=== PATIENT | male | born 1940 | race Caucasian/White ===

== ENCOUNTER 2018-11-10 12:12 | Inpatient (IN) ==
[2018-11-15] MEDS ORDERED: Mag Hydrox/Al Hydrox/Simeth 30 ML UDC PO PRN (15:47)
[2018-11-15] MEDS ORDERED: Ondansetron ODT 4 MG TAB.RAPDIS SL PRN (15:50)
[2018-11-15] MEDS: Amoxicillin/Clavulanate 500 MG TABLET PO SCH (16:29)
[2018-11-15] MEDS: *HR* Heparin 5,000 UNIT/ML VIAL SQ SCH (16:30)
[2018-11-15] MEDS: Melatonin 3 MG TABLET PO PRN (20:34)
[2018-11-16] MEDS: *HR* Heparin 5,000 UNIT/ML VIAL SQ SCH ×2 (05:24→16:28)
[2018-11-16 05:57] LABS: Basophils % 0.8 %; Eosinophils # 0.3 K/mcL (0.0-0.6); Hematocrit 30.5 % (37.5-50.1); Hemoglobin 10.1 g/dL (12.9-16.9); Immature Granulocytes % 0.4 % (0-4); Lymphocytes % 18.4 %; Mean Corpuscular HGB Conc 33.1 g/dL (31.6-35.5); Mean Corpuscular Volume 90.5 fL (83.0-100.0); Mean Platelet Volume 9.2 fL (9.4-12.4); Monocytes # 0.7 K/mcL (0.0-1.3); Monocytes % 12.8 %; Neutrophils # 3.3 K/mcL (1.6-8.9); Platelet Count 275 K/mcL (140-400); Red Blood Count 3.37 M/mcL (4.19-5.50); Red Cell Distribution Width 14.6 % (11.5-14.5); Segmented Neutrophils % 61.6 %; White Blood Count 5.3 K/mcL (4.3-11.1)
[2018-11-16 06:14] LABS: Alanine Aminotransferase 93 Units/L (7-52); Albumin 2.9 g/dL (3.5-5.7); Albumin/Globulin Ratio 1.2 (1.1-2.2); Alkaline Phosphatase 68 Units/L (34-104); Aspartate Amino Transferase 74 Units/L (13-39); BUN/Creatinine Ratio 18 (6-26); Bilirubin,Total 0.5 mg/dL (0.3-1.0); Blood Urea Nitrogen 23 mg/dL (8-23); Carbon Dioxide 27 mEq/L (23-29); Chloride 103 mEq/L (98-107); Globulin 2.5 g/dL (2.4-3.5); Glucose 89 mg/dL (70-105); Magnesium 2.1 mg/dL (1.6-2.6); Osmolality,Calculated 289 (280-300); Potassium 3.5 mEq/L (3.5-5.1); Sodium 138 mEq/L (136-145); Total Protein 5.4 g/dL (6.4-8.9); eGFR For African Americans > 60 (> 60); eGFR For Non-African Americans 54 (> 60)
--- NOTE | 2018-11-16 08:53 | Internal Med History&Physical ---
Date of Encounter: 11/16/18 Time of Encounter: 08:43 Assessment and Plan (1) Community acquired pneumonia Current visit: Yes Status: Acute Improving. Continue Augmentin. Continue O2 per nasal cannula. Monitor labs. White blood cell count 5.3 this morning. Qualifiers: Laterality: left Lung location: lower lobe of lung Qualified Code(s): J18.1 - Lobar pneumonia, unspecified organism (2) General weakness Current visit: Yes Status: Acute PT and OT to eval and treat. Will follow progress. (3) Essential hypertension Current visit: No Status: Chronic Internal Medicine - H&P: HPI Admitted From: Hospital to Hospital Transfer Plans for Post Hospital Care: Home History of present illness: Mr. Ren is a 78 year old male admitted to inpatient rehab from [facility] after an admission for general weakness after having several days of diarrhea and loose stools several times a day. At time of admission he also had fever, chills, right knee pain, productive cough. Chest x-ray was obtained during admission and showed left-sided pneumonia. Past medical history includes arthritis, hyperlipidemia, gout, hypertension, bradycardia. Patient is a former smoker. Patient was eating eggs this morning and started coughing and having difficulty with them. Will have speech therapy eval swallowing. Patient denies fever, chills, nausea, vomiting or diarrhea. Denies chest pain or shortness of breath. States bowels are moving as normal. States he has nonproductive cough. Continues to be on oxygen per nasal cannula. Maintaining O2 sats greater than 92%. Was not on oxygen at home. Son currently have bedside. He states that patient was very independent prior to admission. States he has been coughing often on over the past several months with food. Was able to stand at the kitchen and take his own medications of encounter. Now he is to weak to lift his arms and hold a cup. pt lives at home alone. plan to have PT and OT to eval and treat. Past Med Surg Social Fam HX - Past Medical History Medical history: arthritis, hyperlipidemia, hypertension, other Additional medical history: gout, tremors Psychiatric history: no psych history - Past Surgical History Surgical History: no surgical history - Social History Smoking Status: Former smoker Smokeless Tobacco Status: Yes Alcohol use: occasionally Drug use: none Internal Medicine - H&P: Meds Aspirin [Lo-Dose Aspirin EC] 81 mg PO DAILY 11/15/17 [History] Lisinopril [Zestril] 5 mg PO DAILY 11/15/17 [History] Multivit-Min/FA/Lycopen/Lutein [A Thru Z Select Men 50+ Tablet] 1 tab PO DAILY 11/15/17 [History] Primidone [Mysoline] 25 mg PO DAILY 11/15/17 [History] Simvastatin [Zocor] 20 mg PO HS 11/15/17 [History] Furosemide [Lasix] 20 mg PO DAILY 11/08/18 [History] Loratadine [Allergy Relief] 10 mg PO DAILY 11/08/18 [History] Amoxicillin/Clavulanate [Augmentin] 500 mg PO BIDWM 5 Days #10 tablet 11/15/18 [Rx] Tamsulosin [Flomax] 0.4 mg PO DAILY #30 capsule 11/15/18 [Rx] Allergy/AdvReac Type Severity Reaction Status Date / Time No Known Allergies Allergy Verified 09/08/17 21:00 All Systems PM: A 10-system review of systems was performed and is negative for pertinent findings except as documented above in the HPI. - Constitutional Constitutional: no chills, no fever(s), no night sweats - EENT Eyes: no change in vision, no discharge, no pain, no photophobia Ears: no ear discharge, no ear pain, no tinnitus Nose, mouth and throat: no dysphagia, no nasal discharge, no neck pain, no sore throat - Cardiovascular Cardiovascular ROS IM: no chest pain, no diaphoresis, no dyspnea, no ligh theadedness, no palpitations, no syncope - Respiratory Respiratory: no cough, no dyspnea, no wheezing, no excessive phlegm production - Gastrointestinal Gastrointestinal: no abdominal pain, no diarrhea, no hematemesis, no hematochezia, no melena, no nausea, no vomiting - Musculoskeletal Musculoskeletal ROS IM: no numbness, no tingling - Integumentary Integumentary IM: no rash, no unusual bruising - Neurological Neurological ROS: no confusion, no convulsions, no focal weakness, no numbness, no tingling, no tremor(s) - Hematologic/Lymphatic Hematologic/Lymphatic: no easy bruising - Constitutional Vitals: Temp Pulse Resp BP Pulse Ox 97.7 F 74 16 112/69 97 11/16/18 04:00 11/16/18 04:00 11/16/18 04:00 11/16/18 04:00 11/16/18 04:00 General appearance: Present: cooperative, A&O X 3, pleasant, no acute distress, answers questions appropriately - Head Head exam: Present: atraumatic, normocephalic - Eye Eye exam: Present: PERRL, conjuntiva pink, sclera anicteric Pupils: Present: PERRL - Neck Neck exam general surgery: Present: supple, trachea midline. Absent: lymphadenopathy - Respiratory Respiratory exam: Present: CTAB. Absent: accessory muscle use, rales, rhonchi, wheezes Additional comments: cough with clear sputum - Cardiovascular Cardiovascular exam: Present: RRR, +S1, +S2. Absent: diastolic murmur, gallop, rubs, systolic murmur - GI/Abdominal GI/Abdominal exam: Present: normal bowel sounds, soft, no peritoneal signs. Absent: distended, tenderness - Extremities Exam Extremities exam: Present: warm, radial pulses palpable and symmetrical. Absent: calf tenderness, cyanotic, pedal edema Additional comments: bilat hands nonpitting edema - Neurological Exam Neurological exam: Present: CN II-XII intact, oriented X3, no focal deficits. Absent: pronater drift, facial droop, speech deficit Additional comments: tremors to hands bilat - Skin Skin exam: Present: dry, intact Additional comments: scattered ecchymosis. Internal Med - H&P Results - Labs CBC & Chem 7: 11/16/18 05:30 11/16/18 05:30 Labs: Short CBC 11/16/18 Range/Units 05:30 WBC 5.3 (4.3-11.1) K/mcL Hgb 10.1 L (12.9-16.9) g/dL Hct 30.5 L (37.5-50.1) % Plt Count 275 (140-400) K/mcL Neutrophils # 3.3 (1.6-8.9) K/mcL BMP 11/16/18 05:30 Sodium 138 Potassium 3.5 Chloride 103 Carbon Dioxide 27 BUN 23 Creatinine 1.29 Glucose 89 Calcium 8.0 L Liver Function 11/16/18 Range/Units 05:30 Total Bilirubin 0.5 (0.3-1.0) mg/dL AST 74 H (13-39) Units/L ALT 93 H (7-52) Units/L Alkaline Phosphatase 68 (34-104) Units/L Albumin 2.9 L (3.5-5.7) g/dL
[2018-11-16] MEDS: Furosemide 20 MG TABLET PO SCH (09:11)
[2018-11-16] MEDS: Loratadine 10 MG TABLET PO SCH (09:11)
[2018-11-16] MEDS: Aspirin Enteric Coated 81 MG Tablet PO SCH (09:12)
[2018-11-16] MEDS: Amoxicillin/Clavulanate 500 MG TABLET PO SCH ×2 (09:12→16:28)
[2018-11-16] MEDS: Primidone 50 MG TABLET PO SCH (09:12)
[2018-11-16] MEDS: Multivit/Ca/Min/Fe/FA 1 TAB TABLET PO SCH (09:12)
[2018-11-17] MEDS: *HR* Heparin 5,000 UNIT/ML VIAL SQ SCH ×2 (05:57→17:18)
[2018-11-17] MEDS: Primidone 50 MG TABLET PO SCH (09:23)
[2018-11-17] MEDS: traMADol 50 MG TABLET PO PRN ×2 (09:23→17:16)
[2018-11-17] MEDS: Aspirin Enteric Coated 81 MG Tablet PO SCH (09:23)
[2018-11-17] MEDS: Multivit/Ca/Min/Fe/FA 1 TAB TABLET PO SCH (09:24)
[2018-11-17] MEDS: Furosemide 20 MG TABLET PO SCH (09:24)
[2018-11-17] MEDS: Amoxicillin/Clavulanate 500 MG TABLET PO SCH ×2 (09:24→17:16)
[2018-11-17] MEDS: Loratadine 10 MG TABLET PO SCH (09:24)
--- NOTE | 2018-11-17 10:32 | Internal Med Progress Note ---
Date of Encounter: 11/17/18 Time of Encounter: 10:39 - Assessment and plan (1) Community acquired pneumonia Current Visit: Yes Status: Acute Assessment and plan: No acute issues at this time. Patient continues to have diminished breath sounds throughout lower fills. No productive cough and respiratory effort is relaxed while at rest. Patient's been afebrile. We will continue on Augmentin. He with current therapy as patient has moderate generalized weakness. Patient with long history of COPD Qualifiers: Laterality: left Lung location: lower lobe of lung Qualified Code(s): J18.1 - Lobar pneumonia, unspecified organism (2) HTN (hypertension) Current Visit: Yes Status: Acute Assessment and plan: Vital signs are stable. We will continue with current medications. Qualifiers: Hypertension type: essential hypertension Qualified Code(s): I10 - Essential (primary) hypertension (3) Physical deconditioning Current Visit: Yes Status: Acute Assessment and plan: Patient admitted to this facility for his generalized weakness and for rehabilitation. Patient continues with generalized weakness and remains a risk for fall. Patient is participating in PT/OT. We will continue with current plan of care (4) Gout Current Visit: Yes Status: Acute Assessment and plan: Patient's most recent labs show a uric acid greater than 10. Patient currently denies any discomforts. Will start patient on colchicine and follow-up with allopurinol. Qualifiers: Gout site: unspecified site Gout etiology: unspecified cause Qualified C ode(s): M10.9 - Gout, unspecified (5) Urinary retention with incomplete bladder emptying Current Visit: Yes Status: Acute Assessment and plan: Patient continues a Saxena catheter in place due to urinary retention. Patient with history of BPH. Patient has been seen by urology with orders to continue Saxena catheter until followed up in office. He currently on Flomax. - Time Spent With Patient less than 15 minutes - Subjective Interval history: Patient currently denies any discomforts or shortness of breath. Patient denies any productive cough. He does state that he continues to have moderate generalized weakness. Denies any constipation or diarrhea - Constitutional Vitals: Temp Pulse Resp BP Pulse Ox 97.5 F L 74 16 125/71 97 11/17/18 09:41 11/17/18 09:41 11/17/18 09:41 11/17/18 09:41 11/17/18 09:41 General appearance: Present: cooperative, A&O X 3, pleasant, no acute distress, answers questions appropriately - Head Head exam: Present: atraumatic, normocephalic - Eye Eye exam: Present: PERRL, conjuntiva pink, sclera anicteric Pupils: Present: PERRL - Neck Neck exam general surgery: Present: supple, trachea midline. Absent: lymphadenopathy - Respiratory Respiratory exam: Present: decreased breath sounds, CTAB. Absent: accessory muscle use, rales, rhonchi, wheezes Additional comments: Patient with diminished breath sounds throughout lower shetty. Lungs are clear throughout upper shetty. No productive cough. Respiratory effort appears relaxed. - Cardiovascular Cardiovascular exam: Present: RRR, +S1, +S2. Absent: diastolic murmur, gallop, rubs, systolic murmur - GI/Abdominal GI/Abdominal exam: Present: normal bowel sounds, soft, no peritoneal signs. Absent: distended, tenderness - Extremities Exam Extremities exam: Present: warm, radial pulses palpable and symmetrical. Absent: calf tenderness, cyanotic, pedal edema - Neurological Exam Neurological exam: Present: CN II-XII intact, oriented X3, no focal deficits. Absent: pronater drift, facial droop, speech deficit - Skin Skin exam: Present: dry, intact Internal Medicine: Result - Labs CBC & Chem 7: 11/16/18 05:30 11/16/18 05:30 Consult Discharge Plan - Plan Referrals: Kofi Mejias MD [Primary Care Provider] -
[2018-11-17] MEDS ORDERED: Colchicine 0.6 MG TABLET PO SCH (12:00)
[2018-11-17] MEDS: Colchicine 0.6 MG TABLET PO SCH ×2 (12:58→22:32)
[2018-11-18] MEDS: *HR* Heparin 5,000 UNIT/ML VIAL SQ SCH ×2 (06:40→18:38)
--- NOTE | 2018-11-18 09:27 | Internal Med Progress Note ---
Date of Encounter: 11/18/18 Time of Encounter: 09:25 - Assessment and plan (1) Community acquired pneumonia Current Visit: Yes Status: Acute Assessment and plan: No acute issues at this time. Patient continues to have diminished breath sounds throughout lower shetty. No productive cough and respiratory effort is relaxed while at rest. Patient's been afebrile. We will continue on Augmentin. He with current therapy as patient has moderate generalized weakness. Patient with long history of COPD Qualifiers: Laterality: left Lung location: lower lobe of lung Qualified Code(s): J18.1 - Lobar pneumonia, unspecified organism (2) HTN (hypertension) Current Visit: Yes Status: Acute Assessment and plan: Vital signs are stable. We will continue with current medications. Qualifiers: Hypertension type: essential hypertension Qualified Code(s): I10 - Essential (primary) hypertension (3) Physical deconditioning Current Visit: Yes Status: Acute Assessment and plan: Patient admitted to this facility for his generalized weakness and for rehabilitation. Patient continues with generalized weakness and remains a risk for fall. Patient is participating in PT/OT. We will continue with current plan of care (4) Gout Current Visit: Yes Status: Acute Assessment and plan: Patient's most recent labs show a uric acid greater than 10. Patient currently denies any discomforts. Started patient on colchicine and with allopurinol. Qualifiers: Gout site: unspecified site Gout etiology: unspecified cause Qualified Code(s): M10.9 - Gout, unspecified (5) Urinary retention with incomplete bladder emptying Current Visit: Yes Status: Acute Assessment and plan: Patient continues a Saxena catheter in place due to urinary retention. Patient with history of BPH. Patient has been seen by urology with orders to continue Saxena catheter until followed up in office. He currently on Flomax. - Time Spent With Patient less than 15 minutes - Subjective Interval history: Patient currently denies any discomforts or shortness of breath. Patient denies any productive cough. He does state that he continues to have moderate generalized weakness. Denies any constipation or diarrhea - Constitutional Vitals: Temp Pulse Resp BP Pulse Ox 97.7 F 69 14 123/71 95 11/18/18 06:53 11/18/18 06:53 11/18/18 06:53 11/18/18 06:53 11/18/18 06:53 General appearance: Present: cooperative, A&O X 3, pleasant, no acute distress, answers questions appropriately - Head Head exam: Present: atraumatic, normocephalic - Eye Eye exam: Present: PERRL, conjuntiva pink, sclera anicteric Pupils: Present: PERRL - Neck Neck exam general surgery: Present: supple, trachea midline. Absent: lymphadenopathy - Respiratory Respiratory exam: Present: decreased breath sounds, CTAB. Absent: accessory muscle use, rales, rhonchi, wheezes Additional comments: Lungs clear throughout upper shetty with diminished breath sounds to basilar shetty. Respiratory effort appears relaxed oral rest - Cardiovascular Cardiovascular exam: Present: RRR, +S1, +S2. Absent: diastolic murmur, gallop, rubs, systolic murmur - GI/Abdominal GI/Abdominal exam: Present: normal bowel sounds, soft, no peritoneal signs. Absent: distended, tenderness - Extremities Exam Extremities exam: Present: warm, radial pulses palpable and symmetrical. Absent: calf tenderness, cyanotic, pedal edema - Neurological Exam Neurological exam: Present: CN II-XII intact, oriented X3, no focal deficits. Absent: pronater drift, facial droop, speech deficit - Skin Skin exam: Present: dry, intact Internal Medicine: Result - Labs CBC & Chem 7: 11/16/18 05:30 11/16/18 05:30 Consult Discharge Plan - Plan Referrals: Kofi Mejias MD [Primary Care Provider] -
[2018-11-18] MEDS: Amoxicillin/Clavulanate 500 MG TABLET PO SCH ×2 (09:53→15:38)
[2018-11-18] MEDS: Primidone 50 MG TABLET PO SCH (09:54)
[2018-11-18] MEDS: Colchicine 0.6 MG TABLET PO SCH ×2 (09:54→20:38)
[2018-11-18] MEDS: Loratadine 10 MG TABLET PO SCH (09:54)
[2018-11-18] MEDS: Aspirin Enteric Coated 81 MG Tablet PO SCH (09:54)
[2018-11-18] MEDS: Furosemide 20 MG TABLET PO SCH (09:55)
[2018-11-18] MEDS: Multivit/Ca/Min/Fe/FA 1 TAB TABLET PO SCH (09:55)
[2018-11-18] MEDS: Ibuprofen 400 MG TABLET PO SCH ×2 (15:38→18:33)
[2018-11-19] MEDS: Ibuprofen 400 MG TABLET PO SCH ×5 (00:47→23:43)
[2018-11-19] MEDS: *HR* Heparin 5,000 UNIT/ML VIAL SQ SCH ×2 (05:51→17:27)
[2018-11-19] MEDS: Aspirin Enteric Coated 81 MG Tablet PO SCH (08:40)
[2018-11-19] MEDS: Furosemide 20 MG TABLET PO SCH (08:40)
[2018-11-19] MEDS: Colchicine 0.6 MG TABLET PO SCH ×2 (08:40→21:59)
[2018-11-19] MEDS: Amoxicillin/Clavulanate 500 MG TABLET PO SCH ×2 (08:40→17:15)
[2018-11-19] MEDS: Loratadine 10 MG TABLET PO SCH (08:40)
[2018-11-19] MEDS: Multivit/Ca/Min/Fe/FA 1 TAB TABLET PO SCH (08:41)
[2018-11-19] MEDS: Primidone 50 MG TABLET PO SCH (08:41)
--- NOTE | 2018-11-19 12:12 | Internal Med Progress Note ---
Date of Encounter: 11/19/18 Time of Encounter: 12:10 - Assessment and plan (1) Essential hypertension Current Visit: No Status: Chronic Assessment and plan: blood pressure is stable continue to monitor and adjust meds as needed (2) Physical deconditioning Current Visit: Yes Status: Acute Assessment and plan: pt has hx of gout although no acute exacerbation noted he also has some dependent edema in both feet as well in his right hand , Elevate . on allupurinol add small dose of lasix - Subjective Interval history: Cross coverage . complains of aches and pain especially in his ankles on the left side . He denies being SOB but states that he is weak and has difficulty in getting up and walking distances uses walker . no fever or chills cough chest pain or any other complains - Constitutional Vitals: Temp Pulse Resp BP Pulse Ox 98.1 F 71 16 130/72 96 11/19/18 07:52 11/19/18 07:52 11/18/18 19:22 11/19/18 07:52 11/19/18 07:52 General appearance: Present: cooperative, A&O X 3, pleasant, no acute distress, answers questions appropriately - Head Head exam: Present: atraumatic - Eye Eye exam: Present: PERRL Pupils: Present: PERRL - Neck Neck exam general surgery: Present: full ROM. Absent: tenderness, nuchal rigidity Additional comments: thick neck using oxygen - Respiratory Respiratory exam: Present: decreased breath sounds, CTAB. Absent: chest wall tenderness, rales, respiratory distress, stridor, wheezes, tachypnea Additional comments: essential clear but decrease air entry both sides - Cardiovascular Cardiovascular exam: Present: RRR, +S1, +S2. Absent: irregular rhythm, JVD - GI/Abdominal GI/Abdominal exam: Present: normal bowel sounds, soft. Absent: diminished bowel sounds, distended, guarding, rebound, rigid Additional comments: obese and soft - Extremities Exam Extremities exam: Present: pedal edema, tenderness (Bedema + both ankles no apprent redness or signs of acute gout noted ) Additional comments: edema Pitting has poor hygiene needs nail trimmed - Expanded Upper Extremities Exam General: Present: abrasion (on his right hand noted when compared to his left seems more of due to IV inilterate ) - Neurological Exam Neurological exam: Present: alert, CN II-XII intact, oriented X3, strengths equal and symetr throughout. Absent: facial droop, speech deficit Internal Medicine: Result - Labs CBC & Chem 7: 11/16/18 05:30 11/16/18 05:30 Consult Discharge Plan - Plan Referrals: Kofi Mejias MD [Primary Care Provider] -
[2018-11-19 20:00] LABS: % Iron Saturation 17 % (20-55); Iron 37 mcg/dL (65-175); Transferrin 156 mg/dL (203-362)
[2018-11-20] MEDS: *HR* Heparin 5,000 UNIT/ML VIAL SQ SCH ×2 (05:25→17:25)
[2018-11-20] MEDS: Ibuprofen 400 MG TABLET PO SCH (05:26)
[2018-11-20] MEDS: Colchicine 0.6 MG TABLET PO SCH ×2 (08:28→20:43)
[2018-11-20] MEDS: Furosemide 20 MG TABLET PO SCH (08:28)
[2018-11-20] MEDS: Amoxicillin/Clavulanate 500 MG TABLET PO SCH ×2 (08:28→17:25)
[2018-11-20] MEDS: Multivit/Ca/Min/Fe/FA 1 TAB TABLET PO SCH (08:29)
[2018-11-20] MEDS: Loratadine 10 MG TABLET PO SCH (08:29)
[2018-11-20] MEDS: Aspirin Enteric Coated 81 MG Tablet PO SCH (08:29)
[2018-11-20] MEDS: Primidone 50 MG TABLET PO SCH (08:29)
--- NOTE | 2018-11-20 11:07 | Internal Med Progress Note ---
Date of Encounter: 11/20/18 Time of Encounter: 11:04 - Assessment and plan (1) Essential hypertension Current Visit: No Status: Chronic Assessment and plan: blood pressure is stable continue to monitor (2) Physical deconditioning Current Visit: Yes Status: Acute Assessment and plan: pt has hx of gout although no acute exacerbation noted he also has some dependent edema in both feet as well in his right hand , Elevate . on allup urinol add small dose of Lasix edema seems to be doing better Renal profile as followup (3) Anemia Current Visit: Yes Status: Acute Assessment and plan: low iron , stool for guaice ordered supplement iron Qualifiers: Anemia type: iron deficiency Qualified Code(s): D50.8 - Other iron deficiency anemias - Subjective Interval history: Cross coverage . Feels some what better today not complaining of pain as he did yesterday no change in his breathing overall getting better with no complains - Constitutional Vitals: Temp Pulse Resp BP Pulse Ox 97.2 F L 86 14 128/65 95 11/19/18 19:34 11/19/18 19:34 11/19/18 19:34 11/19/18 19:34 11/19/18 19:34 General appearance: Present: cooperative, A&O X 3, pleasant, no acute distress, answers questions appropriately - Head Head exam: Present: atraumatic - Eye Eye exam: Present: conjunctival injection, EOMI, PERRL. Absent: scleral icterus - Neck Neck exam general surgery: Present: full ROM, supple. Absent: tenderness, nuchal rigidity - Respiratory Respiratory exam: Present: CTAB. Absent: chest wall tenderness, decreased breath sounds, respiratory distress, rhonchi, stridor, wheezes - Cardiovascular Cardiovascular exam: Present: RRR, +S1. Absent: irregular rhythm, JVD, systolic murmur - GI/Abdominal GI/Abdominal exam: Present: normal bowel sounds, soft. Absent: distended, firm, guarding, rigid - Extremities Exam Extremities exam: Absent: pedal edema, tenderness Additional comments: long toe nails needs to be seen by podiatry to get his nails trimmed I am told that it will be arranged - Neurological Exam Neurological exam: Present: CN II-XII intact, oriented X3, strengths equal and symetr throughout. Absent: facial droop, speech deficit Internal Medicine: Result - Labs CBC & Chem 7: 05/15/19 05:30 11/16/18 05:30 Consult Discharge Plan - Plan Referrals: Kofi Mejias MD [Primary Care Provider] -
[2018-11-20] MEDS ORDERED: Benzocaine 20% 12 APPL GEL..GRAM. TP PRN (11:39)
[2018-11-21] MEDS: *HR* Heparin 5,000 UNIT/ML VIAL SQ SCH ×2 (05:31→17:15)
[2018-11-21 06:14] LABS: Basophils # 0.1 K/mcL (0.0-0.2); Basophils % 1.5 %; Eosinophils # 0.2 K/mcL (0.0-0.6); Eosinophils % 3.6 %; Hematocrit 32.8 % (37.5-50.1); Hemoglobin 10.5 g/dL (12.9-16.9); Immature Granulocytes % 0.4 % (0-4); Lymphocytes # 1.4 K/mcL (0.6-4.6); Lymphocytes % 29.6 %; Mean Corpuscular Hemoglobin 29.6 pg (28.0-33.3); Mean Corpuscular Volume 92.4 fL (83.0-100.0); Mean Platelet Volume 9.5 fL (9.4-12.4); Monocytes # 0.7 K/mcL (0.0-1.3); Monocytes % 14.1 %; Neutrophils # 2.4 K/mcL (1.6-8.9); Platelet Count 363 K/mcL (140-400); Red Blood Count 3.55 M/mcL (4.19-5.50); Red Cell Distribution Width 14.3 % (11.5-14.5); Segmented Neutrophils % 50.8 %; White Blood Count 4.7 K/mcL (4.3-11.1)
[2018-11-21 06:27] LABS: Calcium 8.4 mg/dL (8.6-10.3)
[2018-11-21] MEDS: Primidone 50 MG TABLET PO SCH (09:37)
[2018-11-21] MEDS: Multivitamin Liquid 15 ML UDC PO SCH (09:37)
[2018-11-21] MEDS: Aspirin Enteric Coated 81 MG Tablet PO SCH (09:37)
[2018-11-21] MEDS: Loratadine 10 MG TABLET PO SCH (09:39)
[2018-11-21] MEDS: Colchicine 0.6 MG TABLET PO SCH ×2 (09:39→22:21)
[2018-11-21] MEDS: Furosemide 20 MG TABLET PO SCH (09:39)
--- NOTE | 2018-11-21 10:44 | Internal Med Progress Note ---
Date of Encounter: 11/21/18 Time of Encounter: 10:41 - Assessment and plan (1) General weakness Current Visit: Yes Status: Acute Assessment and plan: Continue PT and OT. Will follow progress. (2) Essential hypertension Current Visit: Yes Status: Chronic Assessment and plan: Controlled. Continue current medication. Monitor blood pressure. (3) Acute renal insufficiency Current Visit: Yes Status: Acute Assessment and plan: Creatinine 1.99 today. Will decrease Lasix 20 mg daily. Repeat BMP tomorrow. (4) Anemia Current Visit: Yes Status: Acute Assessment and plan: Hemoglobin 10.5. Continue ferrous sulfate. stAble. Qualifiers: Anemia type: iron deficiency Qualified Code(s): D50.8 - Other iron deficiency anemias - Time Spent With Patient less than 15 minutes - Subjective Interval history: Patient participating well with therapy. Currently sitting up and chair feeding self breakfast. Patient continues to have loose stool. Mainly only drinking liquids for meals. Creatinine slightly elevated today at 1.99. Was started on Lasix 40 mg. Will decrease to 20 mg daily. Denies fever, chills, nausea vom iting or diarrhea. Denies shortness of breath or chest pain. Slight edema to right arm. Encourage patient to elevate when sitting or lying in bed. - Constitutional Vitals: Temp Pulse Resp BP Pulse Ox 98.1 F 63 18 126/69 91 11/21/18 08:49 11/21/18 08:49 11/21/18 08:49 11/21/18 08:49 11/21/18 08:49 General appearance: Present: cooperative, A&O X 3, pleasant, no acute distress, answers questions appropriately - Head Head exam: Present: atraumatic, normocephalic - Eye Eye exam: Present: PERRL, conjuntiva pink, sclera anicteric Pupils: Present: PERRL - Neck Neck exam general surgery: Present: supple, trachea midline. Absent: lymphadenopathy - Respiratory Respiratory exam: Present: CTAB. Absent: accessory muscle use, rales, rhonchi, wheezes - Cardiovascular Cardiovascular exam: Present: RRR, +S1, +S2. Absent: diastolic murmur, gallop, rubs, systolic murmur - GI/Abdominal GI/Abdominal exam: Present: normal bowel sounds, soft, no peritoneal signs. Absent: distended, tenderness - Extremities Exam Extremities exam: Present: warm, radial pulses palpable and symmetrical. Absent: calf tenderness, cyanotic, pedal edema Additional comments: General weakness, small amount of non-pitting edema to right arm. - Neurological Exam Neurological exam: Present: CN II-XII intact, oriented X3, no focal deficits. Absent: pronater drift, facial droop, speech deficit - Skin Skin exam: Present: dry, intact Internal Medicine: Result - Labs CBC & Chem 7: 11/21/18 05:05 11/21/18 05:05 Labs: Short CBC 11/21/18 Range/Units 05:05 WBC 4.7 (4.3-11.1) K/mcL Hgb 10.5 L (12.9-16.9) g/dL Hct 32.8 L (37.5-50.1) % Plt Count 363 (140-400) K/mcL Neutrophils # 2.4 (1.6-8.9) K/mcL BMP 11/21/18 05:05 Sodium 145 Potassium 4.0 Chloride 109 H Carbon Dioxide 29 BUN 30 H Creatinine 1.99 H Glucose 90 Calcium 8.4 L Consult Discharge Plan - Plan Referrals: Kofi Mejias MD [Primary Care Provider] -
[2018-11-22] MEDS: Aspirin Enteric Coated 81 MG Tablet PO SCH (06:08)
[2018-11-22] MEDS: Colchicine 0.6 MG TABLET PO SCH ×2 (06:09→23:33)
[2018-11-22] MEDS: Loratadine 10 MG TABLET PO SCH (06:09)
[2018-11-22] MEDS: Primidone 50 MG TABLET PO SCH (06:11)
[2018-11-22] MEDS: *HR* Heparin 5,000 UNIT/ML VIAL SQ SCH ×2 (06:14→18:43)
[2018-11-22] MEDS: Multivitamin Liquid 15 ML UDC PO SCH (06:16)
--- NOTE | 2018-11-22 13:52 | Internal Med Progress Note ---
Date of Encounter: 11/22/18 Time of Encounter: 13:50 - Assessment and plan (1) General weakness Current Visit: Yes Status: Acute Assessment and plan: Continue PT and OT. Will follow progress. (2) Essential hypertension Current Visit: Yes Status: Chronic Assessment and plan: Controlled. Continue current medication. Monitor blood pressure. (3) Acute renal insufficiency Current Visit: Yes Status: Acute Assessment and plan: Creatinine 1.99 today. Will decrease Lasix 20 mg daily. Repeat BMP tomorrow. (4) Anemia Current Visit: Yes Status: Acute Assessment and plan: Hemoglobin 10.5. Continue ferrous sulfate. stAble. Qualifiers: Anemia type: iron deficiency Qualified Code(s): D50.8 - Other iron deficiency anemias - Time Spent With Patient less than 15 minutes - Subjective Interval history: Patient participating well with therapy. Currently sitting up and chair feeding self breakfast. Patient continues to have loose stool. Mainly only drinking liquids for meals. Denies fever, chills, nausea vomiting or diarrhea. Denies shortness of breath or chest pain. Slight edema to right arm. Encourage zach ent to elevate when sitting or lying in bed. has simms cath, to follow up with urology. - Constitutional Vitals: Temp Pulse Resp BP Pulse Ox 98.0 F 63 16 120/72 93 11/22/18 05:54 11/22/18 05:54 11/22/18 05:54 11/22/18 05:54 11/22/18 05:54 General appearance: Present: cooperative, A&O X 3, pleasant, no acute distress, answers questions appropriately - Head Head exam: Present: atraumatic, normocephalic - Eye Eye exam: Present: PERRL, conjuntiva pink, sclera anicteric Pupils: Present: PERRL - Neck Neck exam general surgery: Present: supple, trachea midline. Absent: lymphadenopathy - Respiratory Respiratory exam: Present: CTAB. Absent: accessory muscle use, rales, rhonchi, wheezes - Cardiovascular Cardiovascular exam: Present: RRR, +S1, +S2. Absent: diastolic murmur, gallop, rubs, systolic murmur - GI/Abdominal GI/Abdominal exam: Present: normal bowel sounds, soft, no peritoneal signs. Absent: distended, tenderness - Extremities Exam Extremities exam: Present: warm, radial pulses palpable and symmetrical. Absent: calf tenderness, cyanotic, pedal edema - Neurological Exam Neurological exam: Present: CN II-XII intact, oriented X3, no focal deficits. A bsent: pronater drift, facial droop, speech deficit - Skin Skin exam: Present: dry, intact Internal Medicine: Result - Labs CBC & Chem 7: 11/21/18 05:05 11/21/18 05:05 Consult Discharge Plan - Plan Referrals: Kofi Mejias MD [Primary Care Provider] -
[2018-11-22] MEDS: Furosemide 20 MG TABLET PO SCH (14:27)
[2018-11-22] MEDS: Melatonin 3 MG TABLET PO PRN (23:33)
[2018-11-23] MEDS: *HR* Heparin 5,000 UNIT/ML VIAL SQ SCH ×2 (05:42→16:43)
[2018-11-23 07:10] LABS: Calcium 8.5 mg/dL (8.6-10.3); Potassium 3.8 mEq/L (3.5-5.1)
--- NOTE | 2018-11-23 09:30 | Internal Med Progress Note ---
Date of Encounter: 11/23/18 Time of Encounter: 09:28 - Assessment and plan (1) General weakness Current Visit: Yes Status: Acute Assessment and plan: Continue PT and OT. Will follow progress. (2) Essential hypertension Current Visit: Yes Status: Chronic Assessment and plan: Controlled. Continue current medication. Monitor blood pressure. (3) Acute renal insufficiency Current Visit: Yes Status: Acute Assessment and plan: Creatinine 2.43 today. Will discontinue Lasix 20 mg daily. Repeat BMP tomorrow. (4) Anemia Current Visit: Yes Status: Acute Assessment and plan: Hemoglobin 10.5. Continue ferrous sulfate. stAble. Qualifiers: Anemia type: iron deficiency Qualified Code(s): D50.8 - Other iron deficiency anemias - Time Spent With Patient 25 - 35 minutes - Subjective Interval history: Patient participating well with therapy. states he slept well last night. Currently sitting up feeding self breakfast. States he usually does not eat lunch breakfast. Mainly only drinking liquids for meals. Patient continues to have loose stool. Creatinine 2.43 today. Will discontinue Lasix at this time. Repeat BMP in am. Denies fever, chills, nausea vomiting or diarrhea. Denies shortness of breath or chest pain. has simms cath, to follow up with urology. - Constitutional Vitals: Temp Pulse Resp BP Pulse Ox 97.5 F L 70 14 117/67 96 11/22/18 20:00 11/22/18 20:00 11/22/18 20:00 11/22/18 20:00 11/23/18 04:58 General appearance: Present: cooperative, A&O X 3, pleasant, no acute distress, answers questions appropriately - Head Head exam: Present: atraumatic, normocephalic - Eye Eye exam: Present: PERRL, conjuntiva pink, sclera anicteric Pupils: Present: PERRL - Neck Neck exam general surgery: Present: supple, trachea midline. Absent: lymphadenopathy - Respiratory Respiratory exam: Present: CTAB. Absent: accessory muscle use, rales, rhonchi, wheezes - Cardiovascular Cardiovascular exam: Present: RRR, +S1, +S2. Absent: diastolic murmur, gallop, rubs, systolic murmur - GI/Abdominal GI/Abdominal exam: Present: normal bowel sounds, soft, no peritoneal signs. Absent: distended, tenderness - Additional comments: simms cath with yellow urine. - Extremities Exam Extremities exam: Present: warm, radial pulses palpable and symmetrical. Absent: calf tenderness, cyanotic, pedal edema Additional comments: general weakness. - Neurological Exam Neurological exam: Present: CN II-XII intact, oriented X3, no focal deficits. Absent: pronater drift, facial droop, speech deficit - Skin Skin exam: Present: dry, intact Internal Medicine: Result - Labs CBC & Chem 7: 11/21/18 05:05 11/23/18 06:05 Labs: BMP 11/23/18 06:05 Sodium 144 Potassium 3.8 Chloride 107 Carbon Dioxide 30 H BUN 39 H Creatinine 2.43 H Glucose 94 Calcium 8.5 L Consult Discharge Plan - Plan Referrals: Kofi Mejias MD [Primary Care Provider] -
[2018-11-23] MEDS: Loratadine 10 MG TABLET PO SCH (11:11)
[2018-11-23] MEDS: Primidone 50 MG TABLET PO SCH (11:11)
[2018-11-23] MEDS: Colchicine 0.6 MG TABLET PO SCH ×2 (11:11→22:52)
[2018-11-23] MEDS: Multivitamin Liquid 15 ML UDC PO SCH (11:12)
[2018-11-23] MEDS: Aspirin Enteric Coated 81 MG Tablet PO SCH (11:12)
[2018-11-23] MEDS: Furosemide 20 MG TABLET PO SCH (11:52)
--- NOTE | 2018-11-23 14:52 | Psychological Evaluation ---
Date of Encounter: 11/23/18 Time of Encounter: 10:30 History of Present Illness History of present illness: Mr. Ren is a 78 year old male admitted to inpatient rehab from [facility] after an admission for general weakness after having several days of diarrhea and loose stools several times a day. At time of admission he also had fever, chills, right knee pain, productive cough. Chest x-ray was obtained during admission and showed left-sided pneumonia. Past medical history includes arthritis, hyperlipidemia, gout, hypertension, bradycardia. Past Medical History - Psychiatric History Psychiatric history: Reports: no psych history Home Medications and Allergies Aspirin [Lo-Dose Aspirin EC] 81 mg PO DAILY 11/15/17 [History] Lisinopril [Zestril] 5 mg PO DAILY 11/15/17 [History] Multivit-Min/FA/Lycopen/Lutein [A Thru Z [employer] Men 50+ Tablet] 1 tab PO DAILY 11/15/17 [History] Primidone [Mysoline] 25 mg PO DAILY 11/15/17 [History] Simvastatin [Zocor] 20 mg PO HS 11/15/17 [History] Furosemide [Lasix] 20 mg PO DAILY 11/08/18 [History] Loratadine [Allergy Relief] 10 mg PO DAILY 11/08/18 [History] Tamsulosin [Flomax] 0.4 mg PO DAILY #30 capsule 11/15/18 [Rx] Allergy/AdvReac Type Severity Reaction Status Date / Time No Known Allergies Allergy Verified 09/08/17 21:00 Social History - Social History Social History: Pt "sometime ago" only once. Has step daughter and good relationship with grandson, who is POA. Lives alone and has a heel caser who he relies on for service/assistance. He enjoys word search, Hiri, driving and visiting friends. 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 - Tobacco Use Smoking Status: Never smoker - Alcohol Use Alcohol Use: occasionally - Drug Use Drug Use: none Cognitive/Emotional Assessment - Cognitive Ability Level of Alertness: Alert Orientation: Person, Place, Time Ability to Follow Directions: Good Thought Process: Linear Additional Findings: Noted paraphasic errors. Unable to spell WORLD forward or backward. Digits forward 4 and backward 3. Knew pres, previous pres and governor. Repetition of words 3/3 after 5 min 0/3. Noted difficulty with sustained and divided attention. Able to perform serial 3's from 20. unable to perform change with 3 digit numbers. - Emotional Status Mood Description: Depressed Affect Description: Euthymic/stable Additional Findings: States depressed with "current shape". Sleep onset poor. Assessment & Plan - Diagnosis (1) Adjustment disorder with depressed mood - Prognosis Prognosis: Good - Treatment Plan Treatment Plan/Recommendations: Recommend eval for anti depressant. Will follow to develop and train coping strategies to elevate mood. Treatment Frequency: weekly Next Session Date: 11/30/18 Procedures - Participants Therapy Participant: Patient - Session Time Session Start Time: 10:30 Session Stop Time: 11:00
[2018-11-23] MEDS: Melatonin 3 MG TABLET PO PRN (22:52)
[2018-11-24 05:13] LABS: Calcium 8.4 mg/dL (8.6-10.3); Potassium 3.8 mEq/L (3.5-5.1)
[2018-11-24] MEDS: *HR* Heparin 5,000 UNIT/ML VIAL SQ SCH ×2 (06:24→18:01)
[2018-11-24] MEDS: Aspirin Enteric Coated 81 MG Tablet PO SCH (09:38)
[2018-11-24] MEDS: Colchicine 0.6 MG TABLET PO SCH ×2 (09:38→20:00)
[2018-11-24] MEDS: Loratadine 10 MG TABLET PO SCH (09:38)
[2018-11-24] MEDS: traMADol 50 MG TABLET PO PRN ×2 (09:38→16:13)
[2018-11-24] MEDS: Multivitamin Liquid 15 ML UDC PO SCH (09:38)
[2018-11-24] MEDS: Primidone 50 MG TABLET PO SCH (09:38)
--- NOTE | 2018-11-24 11:15 | Internal Med Progress Note ---
Date of Encounter: 11/24/18 Time of Encounter: 11:20 - Assessment and plan (1) Community acquired pneumonia Current Visit: Yes Status: Acute Assessment and plan: No acute issues at this time. Patient continues to have diminished breath sounds throughout lower shetty. No productive cough and respiratory effort is relaxed while at rest. Patient's been afebrile. We will continue on Augmentin. He with current therapy as patient has moderate generalized weakness. Patient with long history of COPD Qualifiers: Laterality: left Lung location: lower lobe of lung Qualified Code(s): J18.1 - Lobar pneumonia, unspecified organism (2) HTN (hypertension) Current Visit: Yes Status: Acute Assessment and plan: Vital signs are stable. We will continue with current medications. Qualifiers: Hypertension type: essential hypertension Qualified Code(s): I10 - Essential (primary) hypertension (3) Physical deconditioning Current Visit: Yes Status: Acute Assessment and plan: Patient admitted to this facility for his generalized weakness and for rehabilitation. Patient continues with generalized weakness and remains a risk for fall. Patient is participating in PT/OT. We will continue with current plan of care. Patient continues with speech therapy (4) Gout Current Visit: Yes Status: Acute Assessment and plan: Patient's most recent labs show a uric acid greater than 10. Patient complains of pain to his right knee, but no signs of inflammation noted. We will continue on colchicine and with allopurinol. Qualifiers: Gout site: unspecified site Gout etiology: unspecified cause Presence of tophus: without tophus Qualified Code(s): M1A.9XX0 - Chronic gout, unspecified, without tophus (tophi) (5) Urinary retention with incomplete bladder emptying Current Visit: Yes Status: Acute Assessment and plan: Patient continues a Saxena catheter in place due to urinary retention. Patient with history of BPH. Patient has been seen by urology with orders to continue Saxena catheter until followed up in office. He currently on Flomax. Patient with follow-up with urology next week. He has a scheduled cystoscopy at that time (6) Dysphagia Current Visit: Yes Status: Acute Assessment and plan: Patient continues with very poor oral intake. Patient has communicated that he has anxiety about swallowing with fears of aspiration. Patient continues with speech therapy who is reinforced his need for nutritional support to at least try to eat. Patient continues with thickened liquids, but refuses to drink most fluids. Patient does take occasional ensure supplements. Patient has had a recent MBS during his admission at [place], resulting in the current dysphagia diet. Patient requesting to be advanced on his diet to thin liquids. We will schedule patient for follow-up MBS to evaluate prior to making any changes in diet. Will start patient on Megace Qualifiers: Dysphagia type: unspecified Qualified Code(s): R13.10 - Dysphagia, unspecified (7) Anxiety Current Visit: Yes Status: Acute Assessment and plan: Patient continues with anxiety, stating that he is afraid he will aspirate. Resolving and poor oral intake and noted increased osmolality per labs. Will start patient on Zoloft - Time Spent With Patient less than 15 minutes - Subjective Interval history: Nurse reports patient continues to have very poor oral intake and during meals, stating the patient has been very anxious about aspiration. Patient remains on dysphagia with thickened liquids, which he states that since drinking fluids. Patient's dysphagia was reviewed with speech therapy and states that she feels patient would require another MBS before any change in his diet can be achieved. Patient also complains of moderate pain to his right knee which she states he believes this is gout. Patient currently denies any discomforts or shortness of breath. Patient denies any productive cough. He does state that he continues to have moderate generalized weakness. Denies any constipation or diarrhea - Constitutional Vitals: Temp Pulse Resp BP Pulse Ox 97.8 F 67 18 118/68 92 11/24/18 07:07 11/24/18 07:07 11/24/18 07:07 11/24/18 07:07 11/24/18 07:07 General appearance: Present: cooperative, A&O X 3, pleasant, no acute distress, answers questions appropriately - Head Head exam: Present: atraumatic, normocephalic - Eye Eye exam: Present: PERRL, conjuntiva pink, sclera anicteric Pupils: Present: PERRL - Neck Neck exam general surgery: Present: supple, trachea midline. Absent: lymphadenopathy - Respiratory Respiratory exam: Present: CTAB. Absent: accessory muscle use, rales, rhonchi, wheezes - Cardiovascular Cardiovascular exam: Present: RRR, +S1, +S2. Absent: diastolic murmur, gallop, rubs, systolic murmur - GI/Abdominal GI/Abdominal exam: Present: normal bowel sounds, soft, no peritoneal signs. Absent: distended, tenderness - Extremities Exam Extremities exam: Present: warm, radial pulses palpable and symmetrical. Absent: calf tenderness, cyanotic, pedal edema Additional comments: Patient complaints of pain to right knee, but no erythema or edema noted. - Neurological Exam Neurological exam: Present: CN II-XII intact, oriented X3, no focal deficits. Absent: pronater drift, facial droop, speech deficit - Skin Skin exam: Present: dry, intact Internal Medicine: Result - Labs CBC & Chem 7: 11/21/18 05:05 11/24/18 04:40 Labs: BMP 11/24/18 04:40 Sodium 147 H Potassium 3.8 Chloride 110 H Carbon Dioxide 27 BUN 42 H Creatinine 2.57 H Glucose 91 Calcium 8.4 L Consult Discharge Plan - Plan Referrals: Kofi Mejias MD [Primary Care Provider] -
[2018-11-24] MEDS: Megestrol Acetate 400 MG/10 ML UDC PO SCH (13:21)
[2018-11-24] MEDS: Melatonin 3 MG TABLET PO PRN (19:56)
[2018-11-24] MEDS: Acetaminophen 325 MG TABLET PO PRN (19:56)
[2018-11-25] MEDS: *HR* Heparin 5,000 UNIT/ML VIAL SQ SCH ×2 (05:26→18:08)
[2018-11-25 05:38] LABS: Albumin 3.4 g/dL (3.5-5.7); Albumin/Globulin Ratio 1.3 (1.1-2.2); Bilirubin,Total 0.4 mg/dL (0.3-1.0); Calcium 8.5 mg/dL (8.6-10.3); Globulin 2.6 g/dL (2.4-3.5); Potassium 3.7 mEq/L (3.5-5.1); Uric Acid 8.9 mg/dL (2.3-7.6)
[2018-11-25] MEDS: Loratadine 10 MG TABLET PO SCH (08:22)
[2018-11-25] MEDS: Colchicine 0.6 MG TABLET PO SCH ×2 (08:22→20:38)
[2018-11-25] MEDS: Primidone 50 MG TABLET PO SCH (08:22)
[2018-11-25] MEDS: Acetaminophen 325 MG TABLET PO PRN ×3 (08:23→18:08)
[2018-11-25] MEDS: Megestrol Acetate 400 MG/10 ML UDC PO SCH (08:23)
[2018-11-25] MEDS: Multivitamin Liquid 15 ML UDC PO SCH (08:23)
[2018-11-25] MEDS: Aspirin Enteric Coated 81 MG Tablet PO SCH (08:23)
--- NOTE | 2018-11-25 09:36 | Internal Med Progress Note ---
Date of Encounter: 11/25/18 Time of Encounter: 09:32 - Assessment and plan (1) Community acquired pneumonia Current Visit: Yes Status: Acute Assessment and plan: No acute issues at this time. Patient continues to have diminished breath sounds throughout lower shetty. No productive cough and respiratory effort is relaxed while at rest. Patient's been afebrile. Patient has finished a series of Augmentin. He with current therapy as patient has moderate generalized weakness. Patient with long history of COPD Qualifiers: Laterality: left Lung location: lower lobe of lung Qualified Code(s): J18.1 - Lobar pneumonia, unspecified organism (2) HTN (hypertension) Current Visit: Yes Status: Acute Assessment and plan: Vital signs are stable. We will continue with current medications. Qualifiers: Hypertension type: essential hypertension Qualified Code(s): I10 - Essential (primary) hypertension (3) Physical deconditioning Current Visit: Yes Status: Acute Assessment and plan: Patient admitted to this facility for his generalized weakness and for rehabilitation. Patient continues with generalized weakness and remains a risk for fall. Patient requiring encouragement with participating in PT/OT. Patient frequently refuses to mobilize, feed himself or participate in his ADLs. We will continue with current plan of care. Patient continues with speech therapy (4) Gout Current Visit: Yes Status: Acute Assessment and plan: Patient's most recent labs show a uric acid has decreased to 8.6.. Patient complains of pain to his right knee, but no signs of inflammation noted. We will continue on colchicine and has had a recent increase in allopurinol. Qualifiers: Gout site: unspecified site Gout etiology: unspecified cause Presence of tophus: without tophus Qualified Code(s): M1A.9XX0 - Chronic gout, unspecified, without tophus (tophi) (5) Urinary retention with incomplete bladder emptying Current Visit: Yes Status: Acute Assessment and plan: Patient continues a Saxena catheter in place due to urinary retention. Patient with history of BPH. Patient has been seen by urology with orders to continue Saxena catheter until followed up in office. He currently on Flomax. Patient with follow-up with urology next week. He has a scheduled cystoscopy at that time (6) Dysphagia Current Visit: Yes Status: Acute Assessment and plan: Patient continues with very poor oral intake. Patient has communicated that he has anxiety about swallowing with fears of aspiration. Patient continues with speech therapy who is reinforced his need for nutritional support to at least try to eat. Patient continues with thickened liquids, but refuses to drink most fluids. Patient does take occasional ensure supplements. He continues to have minimal oral intake during meals. He continues to refuse to participate and most of his ADLs and reportedly has required to be a feed by nursing. Patient's labs continue to show hyperosmolality. Patient was started on Megace yesterday Patient has had a recent MBS during his admission at [place], resulting in the current dysphagia diet. Patient requesting to be advanced on his diet to thin liquids. We will schedule patient for follow-up MBS to evaluate prior to making any changes in diet. Qualifiers: Dysphagia type: unspecified Qualified Code(s): R13.10 - Dysphagia, unspecified (7) Anxiety Current Visit: Yes Status: Acute Assessment and plan: Patient continues with anxiety, stating that he is afraid he will aspirate, resulting in poor oral intake and noted increased osmolality per labs. Will start patient on Zoloft. Patient continues to follow with psychology - Time Spent With Patient less than 15 minutes - Subjective Interval history: Nurse reports patient continues to have very poor oral intake and during meals, stating the patient has been very anxious about aspiration. Patient remains on dysphagia with thickened liquids, which he states that the thickened liquids has prevented him from fluid intake. Patient's dysphagia was reviewed with speech therapy and states that she feels patient would require another MBS before any change in his diet can be achieved. MBS is scheduled for today. Nurse reports patient's grandson had related to them that patient has had difficulty with swallow at home and actually takes sometimes hours to be able to eat a meal. Nurse reports patient had minimal intake from his breakfast, but does take his ensure supplements. Patient also complains of moderate pain to his right knee which he states he believes this is gout. Patient denied any tenderness during palpation of right knee, but nursing states that patient at times complains of severe pain to his right knee upon light touch. Labs were repeated this morning which showed a uric acid of 8.6. Patient's had recent increase in allopurinol Nursing has reported patient continues to need encouragement to get up out of bed. Patient frequently request to use bedpan and attempts to refuses to get up to bedside commode. Patient has been reluctant to mobilize and reportedly has been reluctant to participate and his ADLs, to include feeding himself. Patient currently denies any discomforts or shortness of breath. Patient denies any productive cough. He does state that he continues to have moderate generalized weakness. Denies any constipation or diarrhea - Constitutional Vitals: Temp Pulse Resp BP Pulse Ox 97.7 F 65 18 107/62 95 11/25/18 07:09 11/25/18 07:09 11/25/18 07:09 11/25/18 07:09 11/25/18 07:09 General appearance: Present: cooperative, A&O X 3, pleasant, no acute distress, answers questions appropriately - Head Head exam: Present: atraumatic, normocephalic - Eye Eye exam: Present: PERRL, conjuntiva pink, sclera anicteric Pupils: Present: PERRL - Neck Neck exam general surgery: Present: supple, trachea midline. Absent: lymphadenopathy - Respiratory Respiratory exam: Present: decreased breath sounds, CTAB. Absent: accessory muscle use, rales, rhonchi, wheezes - Cardiovascular Cardiovascular exam: Present: RRR, +S1, +S2. Absent: diastolic murmur, gallop, rubs, systolic murmur - GI/Abdominal GI/Abdominal exam: Present: normal bowel sounds, soft, no peritoneal signs. Absent: distended, tenderness - Extremities Exam Extremities exam: Present: warm, radial pulses palpable and symmetrical. Absent: calf tenderness, cyanotic, pedal edema Additional comments: Complaints of pain to right knee. No edema or erythema noted to right knee. No deformity or obvious injury to right knee. - Neurological Exam Neurological exam: Present: CN II-XII intact, oriented X3, no focal deficits. Absent: pronater drift, facial droop, speech deficit Additional comments: Patient continues with essential tremors - Skin Skin exam: Present: dry, intact Internal Medicine: Result - Labs CBC & Chem 7: 11/21/18 05:05 11/25/18 04:55 Labs: BMP 11/25/18 04:55 Sodium 146 H Potassium 3.7 Chloride 108 H Carbon Dioxide 29 BUN 51 H Creatinine 2.82 H Glucose 110 H Calcium 8.5 L Liver Function 11/25/18 Range/Units 04:55 Total Bilirubin 0.4 (0.3-1.0) mg/dL AST 179 H (13-39) Units/L ALT 385 H (7-52) Units/L Alkaline Phosphatase 112 H (34-104) Units/L Albumin 3.4 L (3.5-5.7) g/dL Consult Discharge Plan - Plan Referrals: Kofi Mejias MD [Primary Care Provider] -
[2018-11-25] MEDS ORDERED: E-Z-PAQUE (BARIUM SULF) SUSP 1 BOTTLE PO ONE (12:36)
[2018-11-25] MEDS ORDERED: E-Z-HD (BARIUM SULF) SUSPENSION PO ONE (12:36)
[2018-11-25] MEDS: Melatonin 3 MG TABLET PO PRN (20:43)
[2018-11-26] MEDS: *HR* Heparin 5,000 UNIT/ML VIAL SQ SCH ×2 (05:16→17:49)
[2018-11-26] MEDS: Acetaminophen 325 MG TABLET PO PRN (05:18)
[2018-11-26 06:35] LABS: Calcium 8.5 mg/dL (8.6-10.3); Potassium 3.6 mEq/L (3.5-5.1)
[2018-11-26] MEDS: Colchicine 0.6 MG TABLET PO SCH ×2 (08:26→21:01)
[2018-11-26] MEDS: Megestrol Acetate 400 MG/10 ML UDC PO SCH (08:27)
[2018-11-26] MEDS: Loratadine 10 MG TABLET PO SCH (08:27)
[2018-11-26] MEDS: Primidone 50 MG TABLET PO SCH (08:27)
[2018-11-26] MEDS: Aspirin Enteric Coated 81 MG Tablet PO SCH (08:27)
[2018-11-26] MEDS: Multivitamin Liquid 15 ML UDC PO SCH (08:28)
--- NOTE | 2018-11-26 12:52 | Internal Med Progress Note ---
Date of Encounter: 11/26/18 Time of Encounter: 09:30 - Assessment and plan (1) Recurrent falls Current Visit: No Status: Acute Assessment and plan: We will continue therapy as planned. Unfortunately, patient's weakness and gout symptoms have kept him from participating in therapies. He is not felt to be acceptable for being home alone. Nursing will communicate to his grandson that he will need 24 7 care or nursing facility placement (2) Anxiety Current Visit: Yes Status: Acute Assessment and plan: This seems to be a large part of his problem but it is difficult to assess in this patient which may have multifactorial contributions. He is now on his second day of Zoloft. (3) Dysphagia Current Visit: Yes Status: Acute Assessment and plan: His modified barium swallow yesterday showed incomplete swelling and some unknown aspiration of thin liquids. For this reason, he will continue on thickened liquids. Because he is not drinking adequately, we will treat him with IV fluids at night, for the next few days at least. Qualifiers: Dysphagia type: unspecified Qualified Code(s): R13.10 - Dysphagia, unspecified (4) HTN (hypertension) Current Visit: Yes Status: Acute Assessment and plan: We will continue with current regimen. Qualifiers: Hypertension type: essential hypertension Qualified Code(s): I10 - Essential (primary) hypertension (5) Urinary retention with incomplete bladder emptying Current Visit: Yes Status: Acute Assessment and plan: He is to undergo cystoscopy in about a week and a half. Saxena catheter until then. (6) Chronic renal insufficiency, stage III (moderate) Current Visit: Yes Status: Acute Assessment and plan: We will add fluids and follow. May need to discontinue ibuprofen if he does not improve in the next day. - Subjective Interval history: Patient is without plane except for his gout pain. He states that his right elbow is getting worse again in his knee pain persists. However, range of motion is significantly better at his right elbow and a few days ago. Patient has no complaint of chest discomfort, dyspnea, orthopnea, palpitations, nausea or vomiting, constipation or diarrhea, other changes in bowel habits, difficulty with urination, rash or itching, or other new complaints, except as mentioned above. Review of systems is otherwise negative. I discussed management of patient's care with nursing staff. - Constitutional Vitals: Temp Pulse Resp BP Pulse Ox 97.8 F 73 14 122/66 94 0525/19 07:50 11/26/18 07:50 11/26/18 07:50 11/26/18 07:50 11/26/18 07:50 Exam: Examination: (Except as mentioned above): General: In no apparent distress. Alert and oriented 3. Nondiaphoretic. Head: Atraumatic and normocephalic. Respiratory: No use of accessory muscles. Lungs are clear throughout. Normal airflow. Cardiovascular: Regular rate and rhythm without murmur appreciated. Abdomen: Bowel sounds are normal. No hepatosplenomegaly mass or tenderness appreciated. Obese and therefore difficult to palpate deeply. Extremities: No cyanosis clubbing or edema. Patient with complaints of pain at his right knee although this is unchanged per exam. He also has complaints of right elbow pain but has good range of motion when distracted has no tenderness. Skin: Warm and non-diaphoretic with no new lesions noted. Internal Medicine: Result - Labs CBC & Chem 7: 11/21/18 05:05 11/26/18 05:45 Labs: BMP 11/26/18 05:45 Sodium 145 Potassium 3.6 Chloride 105 Carbon Dioxide 28 BUN 57 H Creatinine 2.80 H Glucose 106 H Calcium 8.5 L - Impressions Impressions Videofluoroscopic Swallow 11/25/18 12:00 IMPRESSION: 1. Aspiration with thin liquids. 2. No evidence of laryngeal penetration or aspiration with nectar thick liquid, applesauce consistency barium, or barium coated cracker. 3. Please see separate speech pathology report for full discussion of findings and recommendations. D/ / 11/25/2018 13:24:32 Eddy Parisi MD / bcarter Interpreting Provider: Eddy Parisi MD Consult Discharge Plan - Plan Referrals: Kofi Mejias MD [Primary Care Provider] -
[2018-11-26] MEDS: 0.9 % Sodium Chloride 1,000 ML IVC SCH (18:15)
[2018-11-27] MEDS: *HR* Heparin 5,000 UNIT/ML VIAL SQ SCH ×2 (04:32→17:19)
[2018-11-27] MEDS: 0.9 % Sodium Chloride 1,000 ML IVC SCH ×2 (04:33→16:02)
[2018-11-27 05:47] LABS: Calcium 8.3 mg/dL (8.6-10.3); Potassium 3.6 mEq/L (3.5-5.1)
[2018-11-27] MEDS: Megestrol Acetate 400 MG/10 ML UDC PO SCH (09:42)
[2018-11-27] MEDS: Multivitamin Liquid 15 ML UDC PO SCH (09:42)
[2018-11-27] MEDS: Loratadine 10 MG TABLET PO SCH (09:43)
[2018-11-27] MEDS: Aspirin Enteric Coated 81 MG Tablet PO SCH (09:43)
[2018-11-27] MEDS: Colchicine 0.6 MG TABLET PO SCH ×2 (09:43→19:54)
[2018-11-27] MEDS: Acetaminophen 325 MG TABLET PO PRN (09:43)
[2018-11-27] MEDS: Primidone 50 MG TABLET PO SCH (09:43)
--- NOTE | 2018-11-27 15:13 | Internal Med Progress Note ---
Date of Encounter: 11/27/18 Time of Encounter: 15:13 - Assessment and plan (1) Recurrent falls Current Visit: No Status: Acute Assessment and plan: We will continue with therapies in a couple of days, after the holiday weekend. (2) Anxiety Current Visit: Yes Status: Acute Assessment and plan: No change. (3) Dysphagia Current Visit: Yes Status: Acute Assessment and plan: Because of his fear about this, the patient is not taking adequate fluids and or food. This is is the reason that a PEG tube may be necessary. Qualifiers: Dysphagia type: unspecified Qualified Code(s): R13.10 - Dysphagia, unspecified (4) HTN (hypertension) Current Visit: Yes Status: Acute Assessment and plan: Marginally controlled. Qualifiers: Hypertension type: essential hypertension Qualified Code(s): I10 - Essential (primary) hypertension (5) Urinary retention with incomplete bladder emptying Current Visit: Yes Status: Acute Assessment and plan: Saxena catheter as planned until December 06 when he is to have a cystoscopy. (6) Chronic renal insufficiency, stage III (moderate) Current Visit: Yes Status: Acute Assessment and plan: Improved nicely with rehydration by IV fluids. - Subjective Interval history: Patient is "not doing well." She feels depressed and like he might do better if he just gives up. I discussed with length including assisted placement, his lack of strength, his malnutrition, his dehydration and rapid improvement with IV therapies, his potential need for a feeding tube. He is discouraged and this says he will keep trying. I discussed this with his grandson and power of histotechnologist, Alexei jones. His phone number is [phone]. He will begin looking tomorrow for nursing homes to place his grandfather. Patient has no complaint of chest discomfort, dyspnea, orthopnea, palpitations, nausea or vomiting, constipation or diarrhea, other changes in bowel habits, difficulty with urination, rash or itching, or other new complaints, except as mentioned above. Review of systems is otherwise negative. I discussed management of patient's care with nursing staff. - Constitutional Vitals: Temp Pulse Resp BP Pulse Ox 98.0 F 61 14 138/62 96 11/27/18 07:56 11/27/18 07:56 11/27/18 07:56 11/27/18 07:56 11/27/18 07:56 Exam: Examination: (Except as mentioned above): General: In no apparent distress. Alert and oriented 3. Nondiaphoretic. Head: Atraumatic and normocephalic. Respiratory: No use of accessory muscles. Lungs are clear throughout. Normal airflow. Cardiovascular: Regular rate and rhythm without murmur appreciated. Abdomen: Bowel sounds are normal. No hepatosplenomegaly mass or tenderness appreciated. Obese and therefore difficult to palpate deeply. Extremities: No cyanosis clubbing or edema. Again, the patient has complaints of arm pain and knee pain but with distraction, does not seem to notice. Skin: Warm and non-diaphoretic with no new lesions noted. Internal Medicine: Result - Labs CBC & Chem 7: 11/21/18 05:05 11/27/18 05:15 Labs: [facility] 11/27/18 05:15 Sodium 149 H Potassium 3.6 Chloride 113 H Carbon Dioxide 29 BUN 50 H Creatinine 2.05 H Glucose 103 Calcium 8.3 L Consult Discharge Plan - Plan Referrals: Kofi Mejias MD [Primary Care Provider] -
[2018-11-27] MEDS ORDERED: 0.9 % Sodium Chloride 250 ML IVC ONE (15:55)
[2018-11-27] MEDS ORDERED: 0.9 % Sodium Chloride 1,000 ML IVC SCH (19:00)
[2018-11-28] MEDS: *HR* Heparin 5,000 UNIT/ML VIAL SQ SCH ×2 (04:41→17:27)
[2018-11-28 06:35] LABS: Calcium 8.4 mg/dL (8.6-10.3); Potassium 3.8 mEq/L (3.5-5.1)
[2018-11-28] MEDS: Multivitamin Liquid 15 ML UDC PO SCH (09:23)
[2018-11-28] MEDS: traMADol 50 MG TABLET PO PRN (09:23)
[2018-11-28] MEDS: Colchicine 0.6 MG TABLET PO SCH ×2 (09:23→19:44)
[2018-11-28] MEDS: Megestrol Acetate 400 MG/10 ML UDC PO SCH (09:23)
[2018-11-28] MEDS: Loratadine 10 MG TABLET PO SCH (09:23)
[2018-11-28] MEDS: Aspirin Enteric Coated 81 MG Tablet PO SCH (09:24)
[2018-11-28] MEDS: Primidone 50 MG TABLET PO SCH (09:24)
--- NOTE | 2018-11-28 13:21 | Internal Med Progress Note ---
Date of Encounter: 11/28/18 Time of Encounter: 13:18 - Assessment and plan (1) Recurrent falls Current Visit: No Status: Acute Assessment and plan: As before, and participation with therapy has been minimal. Grandson is to look at halfway placement. (2) Anxiety Current Visit: Yes Status: Acute Assessment and plan: Ongoing. (3) Dysphagia Current Visit: Yes Status: Acute Assessment and plan: No significant change. Thickened liquids. Oral intake with this is inadequate. Will need to consider PEG tube, soon. Qualifiers: Dysphagia type: unspecified Qualified Code(s): R13.10 - Dysphagia, unspecified (4) HTN (hypertension) Current Visit: Yes Status: Acute Assessment and plan: Controlled. Qualifiers: Hypertension type: essential hypertension Qualified Code(s): I10 - Essential (primary) hypertension (5) Urinary retention with incomplete bladder emptying Current Visit: Yes Status: Acute Assessment and plan: For cystoscopy scheduled December 06. (6) Chronic renal insufficiency, stage III (moderate) Current Visit: Yes Status: Acute Assessment and plan: Improving with IV fluids. (7) Hypernatremia Current Visit: Yes Status: Acute Assessment and plan: We will change to half-normal saline, to continue at night. (8) Conjunctivitis Current Visit: Yes Status: Acute Assessment and plan: Uncertain etiology but we will empirically add sulfa eyedrops for a few days. Qualifiers: Conjunctivitis type: unspecified Laterality: left Qualified Code(s): H10.9 - Unspecified conjunctivitis - Subjective Interval history: Patient states that he is not doing very well. He wants to "give up." Wants to go home to be with his . (.) Nursing notes that his left eye is bothering him and feels like he has something in it. He is not sure as to why. He knows of no injury or foreign body. We discussed his improved while and his elevated sodium and effectiveness IV change, slightly. Patient has no complaint of chest discomfort, dyspnea, orthopnea, palpitations, nausea or vomiting, constipation or diarrhea, other changes in bowel habits, difficulty with urination, rash or itching, or other new complaints, except as mentioned above. Review of systems is otherwise negative. I discussed management of patient's care with nursing staff. We discussed his CODE STATUS and he wishes not to be intubated or undergo cardioversion. - Constitutional Vitals: Temp Pulse Resp BP Pulse Ox 97.4 F L 83 14 143/71 96 11/28/18 07:08 11/28/18 07:08 11/28/18 07:08 11/28/18 07:08 11/28/18 07:08 Exam: Examination: (Except as mentioned above): General: In no apparent distress. Alert and oriented 3. Nondiaphoretic. Head: Atraumatic and normocephalic. Left eye is minimally red conjunctiva. No foreign body or injury is seen. Respiratory: No use of accessory muscles. Lungs are clear throughout. Normal airflow. Cardiovascular: Regular rate and rhythm without murmur appreciated. Abdomen: Bowel sounds are normal. No hepatosplenomegaly mass or tenderness appreciated. Obese and therefore difficult to palpate deeply. Extremities: No cyanosis clubbing or edema. Skin: Warm and non-diaphoretic with no new lesions noted. Internal Medicine: Result - Labs CBC & Chem 7: 11/21/18 05:05 11/28/18 05:55 Labs: BMP 11/28/18 05:55 Sodium 150 H Potassium 3.8 Chloride 116 H Carbon Dioxide 29 BUN 40 H Creatinine 1.56 H Glucose 99 Calcium 8.4 L Consult Discharge Plan - Plan Referrals: Kofi Mejias MD [Primary Care Provider] -
[2018-11-28] MEDS: Sulfacetamide Sodium 10% OPTH 15 ML BOTTLE LEFT EYE SCH ×3 (17:27→20:28)
[2018-11-29] MEDS: *HR* Heparin 5,000 UNIT/ML VIAL SQ SCH ×2 (05:08→17:48)
[2018-11-29] MEDS: Multivitamin Liquid 15 ML UDC PO SCH (09:02)
[2018-11-29] MEDS: Megestrol Acetate 400 MG/10 ML UDC PO SCH (09:02)
[2018-11-29] MEDS: Sulfacetamide Sodium 10% OPTH 15 ML BOTTLE LEFT EYE SCH ×4 (09:03→20:42)
[2018-11-29] MEDS: Colchicine 0.6 MG TABLET PO SCH ×2 (09:03→20:31)
[2018-11-29] MEDS: Primidone 50 MG TABLET PO SCH (09:03)
[2018-11-29] MEDS: Loratadine 10 MG TABLET PO SCH (09:03)
[2018-11-29] MEDS: Aspirin Enteric Coated 81 MG Tablet PO SCH (09:03)
--- NOTE | 2018-11-29 12:16 | Internal Med Progress Note ---
Date of Encounter: 11/29/18 Time of Encounter: 12:14 - Assessment and plan (1) Community acquired pneumonia Current Visit: Yes Status: Acute Assessment and plan: No acute issues at this time. Patient continues to have diminished breath sounds throughout lower shetty. No productive cough and respiratory effort is relaxed while at rest. Patient's been afebrile. Patient has finished a series of Augmentin. He with current therapy as patient has moderate generalized weakness. Patient with long history of COPD Qualifiers: Laterality: left Lung location: lower lobe of lung Qualified Code(s): J18.1 - Lobar pneumonia, unspecified organism (2) HTN (hypertension) Current Visit: Yes Status: Acute Assessment and plan: Vital signs are stable. We will continue with current medications. Qualifiers: Hypertension type: essential hypertension Qualified Code(s): I10 - Essential (primary) hypertension (3) Physical deconditioning Current Visit: Yes Status: Acute Assessment and plan: Patient admitted to this facility for his generalized weakness and for rehabilitation. Patient continues with generalized weakness and remains a risk for fall. Patient requiring encouragement with participating in PT/OT. Patient frequently refuses to mobilize, feed himself or participate in his ADLs. We will continue with current plan of care. Patient continues with speech therapy due to recent poor results from MBS (4) Gout Current Visit: Yes Status: Acute Assessment and plan: Patient's most recent labs show a uric acid has decreased to 8.6.. Patient complains of pain to his right knee, but no signs of inflammation noted. We will continue on colchicine and has had a recent increase in allopurinol. Qualifiers: Gout site: unspecified site Gout etiology: unspecified cause Presence of tophus: without tophus Qualified Code(s): M1A.9XX0 - Chronic gout, unspecified, without tophus (tophi) (5) Dysphagia Current Visit: Yes Status: Acute Qualifiers: Dysphagia type: unspecified Qualified Code(s): R13.10 - Dysphagia, unspecified - Time Spent With Patient less than 15 minutes - Subjective Interval history: Nurse reports patient continues to have very poor oral intake and during meals, stating the patient has not been hungry. Patient remains on dysphagia with thickened liquids, which he states that the thickened liquids has prevented him from fluid intake. Patient's dysphagia was reviewed with another MBS which showed continued aspiration. Due to patient's poor oral intake patient cur rently has been receiving IV fluids at night, which has improved his alertness and strength. Patient also complains of moderate pain to his right knee which he states he believes this is gout. Patient denied any tenderness during palpation of right knee. Labs were repeated this morning which showed a uric acid of 8.6. Patient's had recent increase in allopurinol Nursing has reported patient continues to need encouragement to get up out of bed and has poor participation therapy. Patient currently denies any discomforts or shortness of breath. Patient denies any productive cough. He does state that he continues to have moderate generalized weakness. - Constitutional Vitals: Temp Pulse Resp BP Pulse Ox 98.1 F 55 16 152/66 92 11/29/18 07:18 11/29/18 07:18 11/29/18 07:18 11/29/18 07:18 11/29/18 07:18 General appearance: Present: A&O X 3, pleasant, no acute distress, answers questions appropriately - Head Head exam: Present: atraumatic, normocephalic - Eye Eye exam: Present: PERRL, conjuntiva pink, sclera anicteric Pupils: Present: PERRL - Neck Neck exam general surgery: Present: supple, trachea midline. Absent: lymphadenopathy - Respiratory Respiratory exam: Present: decreased breath sounds, CTAB. Absent: accessory muscle use, rales, rhonchi, wheezes - Cardiovascular Cardiovascular exam: Present: irregular rhythm, RRR, +S1, +S2. Absent: diastolic murmur, gallop, rubs, systolic murmur - GI/Abdominal GI/Abdominal exam: Present: normal bowel sounds, soft, no peritoneal signs. Absent: distended, tenderness - Extremities Exam Extremities exam: Present: warm, radial pulses palpable and symmetrical. Absent: calf tenderness, cyanotic, pedal edema - Neurological Exam Neurological exam: Present: CN II-XII intact, oriented X3, no focal deficits. Absent: pronater drift, facial droop, speech deficit - Skin Skin exam: Present: dry, intact Internal Medicine: Result - Labs CBC & Chem 7: 11/21/18 05:05 11/28/18 05:55 Consult Discharge Plan - Plan Referrals: Kofi Mejias MD [Primary Care Provider] -
[2018-11-29] MEDS: Acetaminophen 325 MG TABLET PO PRN (20:40)
[2018-11-30] MEDS: *HR* Heparin 5,000 UNIT/ML VIAL SQ SCH ×2 (05:24→18:05)
[2018-11-30 08:38] LABS: BUN/Creatinine Ratio 21 (6-26); Blood Urea Nitrogen 27 mg/dL (8-23); Calcium 7.9 mg/dL (8.6-10.3); Carbon Dioxide 25 mEq/L (23-29); Chloride 114 mEq/L (98-107); Glucose 97 mg/dL (70-105); Osmolality,Calculated 303 (280-300); Potassium 3.7 mEq/L (3.5-5.1); Sodium 144 mEq/L (136-145); eGFR For African Americans > 60 (> 60); eGFR For Non-African Americans 53 (> 60)
--- NOTE | 2018-11-30 10:05 | Physician Discharge Referral ---
ExtendedCare Referral Info Transfer To: [facility] Provider in Charge after Transfer: PCP Institutional Level of Care: Skilled - Diagnosis (1) General weakness Priority: Primary Status: Acute (2) Essential hypertension Priority: Secondary Status: Chronic (3) Acute renal insufficiency Priority: Primary Status: Deleted (4) Anemia Priority: Secondary Status: Acute Prognosis: Poor Aware of Diagnosis: Patient, Family Aware of Prognosis: Patient, Family - Transfer Medications Home Medications: Aspirin [Lo-Dose Aspirin EC] 81 mg PO DAILY 11/15/17 [History] Lisinopril [Zestril] 5 mg PO DAILY 11/15/17 [History] Multivit-Min/FA/Lycopen/Lutein [A Thru Z Select Men 50+ Tablet] 1 tab PO DAILY 11/15/17 [History] Primidone [Mysoline] 25 mg PO DAILY 11/15/17 [History] Simvastatin [Zocor] 20 mg PO HS 11/15/17 [History] Furosemide [Lasix] 20 mg PO DAILY 11/08/18 [History] Loratadine [Allergy Relief] 10 mg PO DAILY 11/08/18 [History] Tamsulosin [Flomax] 0.4 mg PO DAILY #30 capsule 11/15/18 [Rx] Allergies/Adverse Reactions: Allergy/AdvReac Type Severity Reaction Status Date / Time No Known Allergies Allergy Verified 09/08/17 21:00 - Respiratory Orders Smoking Cessation: Smoking cessation has been advised. For more information, call the [place] Tobacco Quit Line at 9-203-FHVQ-NOW. - Ancillary Orders May use pressure relief devices daily prn - Advance Directives Code Status: DNR-Comfort Care - Mobility Orders Ambulate - Rehabiliation Orders Rehab Potential: Fair Rehab Orders: Evaluation for Physical Therapy, Evaluation for Occupational Therapy, Evaluation for Speech Therapy CERTIFICATION: I certify that the transfer of the above named patient to an Extended Care Facility is necessary for the continuing treatment of the diagnosis listed. The above information is true and accurate reflection of patient's current condition. Confidential - Redisclosure prohibited without a patient's written consent.
--- NOTE | 2018-11-30 10:09 | Discharge Summary ---
Date of Encounter: 11/30/18 Time of Encounter: 10:06 - Discharge Diagnosis (1) General weakness Priority: Primary Status: Acute Comments: assist with ADLs. PT and OT. (2) Essential hypertension Priority: Secondary Status: Chronic Comments: Controlled with current medication. Monitor blood pressure. (3) Acute renal insufficiency Priority: Secondary Status: Acute Comments: Improved. Creatinine normal. Monitor. (4) Anemia Priority: Secondary Status: Acute Comments: Stable. Monitor. Qualifiers: Anemia type: iron deficiency Qualified Code(s): D50.8 - Other iron deficiency anemias Hospital course: Mr. Ren is a 78 year old male discharging to [facility]. Has appointment with Dr. Law for possible pain tube placement on December 06. Patient has been refusing to eat. Has been coughing when trying to eat. Speech therapy started a mechanical soft diet with thickened liquds. last NA level was 150, 0.45% IV fluids at bedtime for hydration management. sodium normalized today at 144. denies fever, chills, NVD.denies SOB or chest pain. has been refusing to participate with therapy. recent gout flare up. states pain has improved. Discharge discussed with: patient, family, nurse - Time Spent with Patient Total time spent providing and/or coordinating discharge services: Time spent: Greater than 30 minutes - Discharge Medications Prescriptions: No Action Simvastatin [Zocor] 20 mg PO HS Lisinopril [Zestril] 5 mg PO DAILY Primidone [Mysoline] 25 mg PO DAILY Aspirin [Lo-Dose Aspirin EC] 81 mg PO DAILY Multivit-Min/FA/Lycopen/Lutein [A Thru Z Select Men 50+ Tablet] 1 tab PO DAILY Furosemide [Lasix] 20 mg PO DAILY Loratadine [Allergy Relief] 10 mg PO DAILY Tamsulosin [Flomax] 0.4 mg PO DAILY #30 capsule Home Medications: Aspirin [Lo-Dose Aspirin EC] 81 mg PO DAILY 11/15/17 [History] Lisinopril [Zestril] 5 mg PO DAILY 11/15/17 [History] Multivit-Min/FA/Lycopen/Lutein [A Thru Z Select Men 50+ Tablet] 1 tab PO DAILY 11/15/17 [History] Primidone [Mysoline] 25 mg PO DAILY 11/15/17 [History] Simvastatin [Zocor] 20 mg PO HS 11/15/17 [History] Furosemide [Lasix] 20 mg PO DAILY 11/08/18 [History] Loratadine [Allergy Relief] 10 mg PO DAILY 11/08/18 [History] Tamsulosin [Flomax] 0.4 mg PO DAILY #30 capsule 11/15/18 [Rx] Acetaminophen [Tylenol] 650 mg PO Q4HR PRN tablet 11/30/18 [Rx] Allopurinol [Zyloprim 100 MG] 200 mg PO DAILY tablet 11/30/18 [Rx] Colchicine [Colcrys] 0.6 mg PO BID tablet 11/30/18 [Rx] Ferrous Sulfate 325 mg PO BIDWM tablet 11/30/18 [Rx] Ibuprofen Susp [Motrin Susp] 400 mg PO Q6HR udc 11/30/18 [Rx] Megestrol Acetate [Megace] 400 mg PO DAILY udc 11/30/18 [Rx] Melatonin 3 mg PO HS PRN tablet 11/30/18 [Rx] Ondansetron ODT [Zofran ODT] 4 mg SL Q6HR PRN tab.rapdis 11/30/18 [Rx] Sertraline [Zoloft] 50 mg PO DAILY tablet 11/30/18 [Rx] Sulfacetamide Sodium 10% OPTH [Bleph 10] 2 drop LEFT EYE QID bottle 11/30/18 [Rx] Allergies/Adverse Reactions: Allergy/AdvReac Type Severity Reaction Status Date / Time No Known Allergies Allergy Verified 09/08/17 21:00 Date of admission: 11/15/18 15:06 Primary care physician: Kofi Mejias MD Consults: 11/15/18 15:40 Consult to Occupational Therapy [CONS] Routine Comment: weakness Reason for Consult: Weakness secondary to weakness Does patient have active BEDREST order?: No Is patient medically & hemodynamically stable?: Yes Consult to Physical Therapy [CONS] Routine Comment: weakness Reason for Consult: weakness secondary to PNE Does patient have active BEDREST order?: No Is patient medically & hemodynamically stable?: Yes Consult to Recreational Therapy [CONS] Routine Comment: Consult to Parole Board Member [CONS] Routine Reason for SW Consult: discharge planning 11/15/18 15:43 Consult to Speech Therapy [CONS] Routine Comment: Evaluate, develop and implement POC Reason for Consult: Difficulty swallowing, modified diet. Call Completed: Yes 11/16/18 09:09 Consult to Nutrition [CONS] Routine Comment: Consulting Provider: NUTRITION Reason for Dietary Consult: PO Supplementation Other:: poor appetite 11/18/18 18:51 Consult to Psychology [CONS] Routine Consulting Provider: Silvia Sandhu Reason for Consult: Possible depression; adjustment disorder Call Completed: No Discharging clinician: Michael Uriostegui Anticipated date of discharge: 11/30/18 - Constitutional Vitals: Temp Pulse Resp BP Pulse Ox 97.7 F 53 16 163/67 92 11/30/18 07:34 11/30/18 07:34 11/30/18 07:34 11/30/18 07:34 11/30/18 07:34 General appearance: Present: cooperative, A&O X 3, pleasant, no acute distress, answers questions appropriately - Head Head exam: Present: atraumatic, normocephalic - Eye Eye exam: Present: PERRL, conjuntiva pink, sclera anicteric Pupils: Present: PERRL - Neck Neck exam general surgery: Present: supple, trachea midline. Absent: lymphadenopathy - Respiratory Respiratory exam: Present: CTAB. Absent: accessory muscle use, rales, rhonchi, wheezes - Cardiovascular Cardiovascular exam: Present: RRR, +S1, +S2. Absent: diastolic murmur, gallop, rubs, systolic murmur - GI/Abdominal GI/Abdominal exam: Present: normal bowel sounds, soft, no peritoneal signs. Absent: distended, tenderness - Extremities Exam Extremities exam: Present: warm, radial pulses palpable and symmetrical. Absent: calf tenderness, cyanotic, pedal edema Additional comments: edema nonpitting to right upper extremity. - Neurological Exam Neurological exam: Present: CN II-XII intact, oriented X3, no focal deficits. Absent: pronater drift, facial droop, speech deficit - Skin Skin exam: Present: dry, intact - Patient Status Disposition: Transfer SNF Condition: Fair Functional capacity at discharge: uses cane/walker Overall status at discharge: patient is not back to baseline - Discharge Instructions Follow Up With: Mitul Law DO [Partnered Physician] - 12/06/18 11:50 am James Garcia [Partnered Physician] - 12/06/18 2:00 pm Shahida Cabrera MD [Partnered Physician] - 12/29/18 10:30 am Kofi Mejias MD [Primary Care Provider] - 04/21/19 2:00 pm - Diet and Activity Activity: as per physical therapy, increase activity as tolerated Diet: other
[2018-11-30] MEDS: Acetaminophen 325 MG TABLET PO PRN (11:21)
[2018-11-30] MEDS: Aspirin Enteric Coated 81 MG Tablet PO SCH (11:29)
[2018-11-30] MEDS: Colchicine 0.6 MG TABLET PO SCH ×2 (11:30→23:02)
[2018-11-30] MEDS: Primidone 50 MG TABLET PO SCH (11:30)
[2018-11-30] MEDS: Loratadine 10 MG TABLET PO SCH (11:30)
[2018-11-30] MEDS: Megestrol Acetate 400 MG/10 ML UDC PO SCH (11:41)
[2018-11-30] MEDS: Multivitamin Liquid 15 ML UDC PO SCH (11:42)
[2018-11-30] MEDS: Sulfacetamide Sodium 10% OPTH 15 ML BOTTLE LEFT EYE SCH ×4 (11:43→23:02)
--- NOTE | 2018-11-30 15:57 | Rehab Psychology Progress Note ---
Date of Encounter: 11/30/18 Time of Encounter: 11:30 Subjective - Patient Report Patient Report: "Down in the dumps, don't give a crap what's going to happen". He stated he could not get comfortable due to pain. He stated sleep was pretty good. He wanted to 4-5 days ago and sometimes just "wants to give up". He is also concerned with being a "burden". - Symptoms Symptoms: Not eating and refusing therapies. Objective - WHODAS Functional Impairment Concentration, Problem-solving, Communication: Moderate Social Functioning: Moderate - Comments Functional Status Comments: Not doing a lot. Relies heavily on others. - Mental Status Mental Status Changes: Status quo. OX3.Processed his feelings and pro/con regarding vs giving up putting in effort for family. Assessment and Plan - Diagnosis (1) Adjustment disorder with depressed mood - Response to Treatment Response to Treatment: No Change - Prognosis Prognosis: Guarded - Treatment Plan Treatment Plan Recommendations: Continue Current Plan/Goals Treatment Frequency: weekly while inpatient Next Session Date: 12/07/18 Procedures - Intervention Interventions: Cognitive/Behavioral Therapy - Modality Modality: Psychotherapy 30 minutes - Participants Therapy Participant: Patient - Session Time Session Start Time: 11:30 Session Stop Time: 12:00
[2018-11-30] MEDS: Melatonin 3 MG TABLET PO PRN (23:14)
[2018-11-30] MEDS: traMADol 50 MG TABLET PO PRN (23:15)
[2018-12-01] MEDS: *HR* Heparin 5,000 UNIT/ML VIAL SQ SCH ×2 (06:41→16:50)
[2018-12-01] MEDS: traMADol 50 MG TABLET PO PRN (06:53)
[2018-12-01 07:46] VITALS: BP 151/66
--- NOTE | 2018-12-01 09:53 | Internal Med Progress Note ---
Date of Encounter: 12/01/18 Time of Encounter: 09:51 - Assessment and plan (1) Community acquired pneumonia Current Visit: Yes Status: Acute Assessment and plan: No acute issues at this time. Patient continues to have diminished breath sounds throughout lower shetty. No productive cough and respiratory effort is relaxed while at rest. Patient's been afebrile. Patient has finished a series of Augmentin. He with current therapy as patient has moderate generalized weakness. Patient with long history of COPD Qualifiers: Laterality: left Lung location: lower lobe of lung Qualified Code(s): J18.1 - Lobar pneumonia, unspecified organism (2) HTN (hypertension) Current Visit: Yes Status: Acute Assessment and plan: Vital signs are stable. We will continue with current medications. Qualifiers: Hypertension type: essential hypertension Qualified Code(s): I10 - Essential (primary) hypertension (3) Physical deconditioning Current Visit: Yes Status: Acute Assessment and plan: Patient admitted to this facility for his generalized weakness and for rehabilitation. Patient continues with generalized weakness and remains a risk for fall. Patient requiring encouragement with participating in PT/OT. Patient frequently refuses to mobilize, feed himself or participate in his ADLs. We will continue with current plan of care. Patient continues with speech therapy due to recent poor results from MBS. Patient being prepared for transfer to assisted facility for further rehabilitation. (4) Gout Current Visit: Yes Status: Acute Assessment and plan: Patient's most recent labs show a uric acid has decreased to 8.6.. Patient complains of pain to his right knee, but no signs of inflammation noted. We will continue on colchicine and has had a recent increase in allopurinol. Qualifiers: Gout site: unspecified site Gout etiology: unspecified cause Presence of tophus: without tophus Qualified Code(s): [id number].[id number] - Chronic gout, unspecified, without tophus (tophi) (5) Dysphagia Current Visit: Yes Status: Acute Assessment and plan: Patient continues with very poor oral intake. Patient has communicated that he has anxiety about swallowing with fears of aspiration. Patient continues with speech therapy who is reinforced his need for nutritional support to at least try to eat. Patient continues with thickened liquids, but refuses to drink most fluids. Patient had a repeat MBS last week, which showed continued silent aspiration. Patient was continued on dysphagia diet. Patient does take occasional ensure supplements. He continues to have minimal oral intake during meals. He continues to refuse to participate and most of his ADLs and reportedly has required to be a feed by nursing. Patient's labs continue to show hyperosmolality. Patient was started on Megace last week, but no change in oral intake has been noted. Qualifiers: Dysphagia type: unspecified Qualified Code(s): R13.10 - Dysphagia, unspecified - Time Spent With Patient less than 15 minutes - Subjective Interval history: Patient appears relaxed currently denies any discomforts shortness of breath. Patient states that he feels he has been eating more, but per reports patient continues to have very poor oral intake. Patient continues complaining of slight pain to his right knee, which is a common gout site for him. States that his pain is tolerable when he takes Tylenol. Patient continues a Saxena catheter in place and states that his urologist had told him he will need to continue the catheter for a few weeks. - Constitutional Vitals: Temp Pulse Resp BP Pulse Ox 97.7 F 57 16 151/66 95 12/01/18 07:45 12/01/18 07:45 12/01/18 07:45 12/01/18 07:45 12/01/18 07:45 General appearance: Present: cooperative, A&O X 3, pleasant, no acute distress, answers questions appropriately - Head Head exam: Present: atraumatic, normocephalic - Eye Eye exam: Present: PERRL, conjuntiva pink, sclera anicteric Pupils: Present: PERRL - Neck Neck exam general surgery: Present: supple, trachea midline. Absent: lymphadenopathy - Respiratory Respiratory exam: Present: decreased breath sounds, CTAB. Absent: accessory muscle use, rales, rhonchi, wheezes - Cardiovascular Cardiovascular exam: Present: RRR, +S1, +S2. Absent: diastolic murmur, gallop, rubs, systolic murmur - GI/Abdominal GI/Abdominal exam: Present: normal bowel sounds, soft, no peritoneal signs. Absent: distended, tenderness - Additional comments: Saxena catheter in place with clear yellow urine received - Extremities Exam Extremities exam: Present: warm, radial pulses palpable and symmetrical. Absent: calf tenderness, cyanotic, pedal edema - Neurological Exam Neurological exam: Present: CN II-XII intact, oriented X3, no focal deficits. Absent: pronater drift, facial droop, speech deficit - Skin Skin exam: Present: dry, intact Internal Medicine: Result - Labs CBC & Chem 7: 11/21/18 05:05 11/30/18 07:50 Consult Discharge Plan - Plan Referrals: Mitul Law DO [Partnered Physician] - 12/06/18 11:50 am James Garcai [Partnered Physician] - 12/06/18 2:00 pm Shahida Cabrera MD [Partnered Physician] - 12/29/18 10:30 am Kofi Mejias MD [Primary Care Provider] - 04/21/19 2:00 pm
[2018-12-01] MEDS: Acetaminophen 325 MG TABLET PO PRN (10:34)
[2018-12-01] MEDS: Colchicine 0.6 MG TABLET PO SCH (10:36)
[2018-12-01] MEDS: Primidone 50 MG TABLET PO SCH (10:37)
[2018-12-01] MEDS: Aspirin Enteric Coated 81 MG Tablet PO SCH (10:37)
[2018-12-01] MEDS: Sulfacetamide Sodium 10% OPTH 15 ML BOTTLE LEFT EYE SCH ×3 (10:39→16:50)
[2018-12-01] MEDS: Megestrol Acetate 400 MG/10 ML UDC PO SCH (10:40)
[2018-12-01] MEDS: Loratadine 10 MG TABLET PO SCH (10:40)
[2018-12-01] MEDS: Multivitamin Liquid 15 ML UDC PO SCH (10:40)
== END 2018-12-01 17:00 | DRG 945 ==
LOC: INPGRE 11-15 15:06